=== PATIENT | female | born 1965 | race Caucasian/White ===

== ENCOUNTER → 2020-07-13 | Day surgery (SDC) | payer OTHER | LOC: MAMMO 07:12 | PROVIDERS: ATTEND Family Medicine | PROC: 0H9U0ZX Drainage of Left Breast, Open Approach, Diagnostic (ICD-10-PCS; principal; 2020-07-13) | DX: N62 Hypertrophy of breast (principal); N60.82 Other benign mammary dysplasias of left breast | CPT/HCPCS: 19081; 76098; 88305 ==

== ENCOUNTER 2020-10-18 12:20 | Outpatient (CLI) | payer OTHER | END 2020-10-18 12:21 | disposition home or self-care (01) | LOC: BICMRI 12:20 | PROVIDERS: ATTEND Family Medicine | DX: M25.512 Pain in left shoulder (principal); M19.012 Primary osteoarthritis, left shoulder ==